=== PATIENT | female | born 1970 | race Caucasian/White ===

== ENCOUNTER 2016-12-22 14:16 | Emergency (ER) | payer MEDICAID, OTHER ==
[2016-12-22] MEDS ORDERED: MAALOX/LIDO2%VISC/SIMETHICONE 40 ML BOT ONE (14:55)
[2016-12-22] MEDS ORDERED: ONDANSETRON 4 MG/2ML 2 ML VIAL ONE (14:56)
[2016-12-22] MEDS ORDERED: DIPHENHYDRAMINE HCL 50 MG/1 ML VIAL ONE (14:56)
[2016-12-22] MEDS ORDERED: METOCLOPRAMIDE HCL 5 MG/ML 2ML VIAL ONE (14:56)
[2016-12-22 15:29] LABS: ALB/GLOB RATIO 1.5 (>1.0); ALBUMIN 3.7 gm/dL (3.5-5.7); CALCIUM 8.9 mg/dL (8.6-10.3)
[2016-12-22 15:32] LABS: ABSOLUTE NEUTROPHIL COUNT 4.2 K/mm3 (1.8-7.7); BASO % 0.6 % (0.2-1.0); EOS # 0.3 (0.0-0.5); EOS % 3.5 % (0.9-2.9); HEMATOCRIT 34.2 % (37.0-47.0); HEMOGLOBIN 11.4 gm/l (12.0-16.0); IMM NEUT% 0.3 % (0-1); LYMPH # 2.1 (1.0-4.8); LYMPH % 29.4 % (15-45); MEAN CELL VOLUME 97.7 fl (81.0-99.0); MEAN CORPUSCULAR HEMOGLOBIN 32.6 pg (27.0-31.0); MEAN CORPUSCULAR HGB CONC 33.3 g/dl (33.0-37.0); MEAN PLATELET VOLUME 9.4 fl (7.4-10.4); MONO # 0.5 (0.0-0.8); MONO % 6.8 % (4-12); NEUT % 59.4 % (43-75); PLATELET COUNT 262 K/mm3 (130-400)
[2016-12-22 15:48] LABS: TROPONIN I < 0.01 ng/ml (0.0-0.06)
[2016-12-22 15:52] LABS: CKMB ISOENZYME 1.8 ng/ml (0.6-6.3)
[2016-12-22 16:05] LABS: SPECIFIC GRAVITY 1.015 (1.001-1.030); URINE BILIRUBIN NEGATIVE (NEGATIVE); URINE BLOOD NEGATIVE (NEGATIVE); URINE GLUCOSE (UA) NEGATIVE (NEGATIVE); URINE LEUKOCYTE ESTERASE NEGATIVE (NEGATIVE); URINE NITRITE NEGATIVE (NEGATIVE); URINE PROTEIN NEGATIVE (NEGATIVE); URINE UROBILINOGEN NORMAL (0-1 mg/dl)
[2016-12-22 16:11] LABS: URINE APPEARANCE CLEAR; URINE COLOR YELLOW
== END 2016-12-22 16:18 | disposition home or self-care (01) ==
LOC: ED 14:16
DX: G43.909 Migraine, unspecified, not intractable, without status migrainosus (principal); R10.13 Epigastric pain; R60.0 Localized edema; N93.9 Abnormal uterine and vaginal bleeding, unspecified; R63.5 Abnormal weight gain
CPT/HCPCS: 83690; 84703; 85025; 82550; 82553; 80053; 81003; 84484; 96375 ×2; 99283 ×2; 96374; J1200; A9270; J2765; J2405